=== PATIENT | male | born 1950 | race Two or more races ===

== ENCOUNTER 2016-12-04 18:31 | Emergency (ER) | payer OTHER ==
[~2016-12-04] VITALS: Ht 172.7 cm; Wt 66.2 kg
[~2016-12-04 18:31] MED LIST: ASCO500T3 PO; CA C1TAB28 PO; FERR-26 PO; HYDR-2762 PO; LISI-373 PO; RANI150T6 PO; TAMS0.4C97 PO; VITA1TAB49 PO
--- NOTE | 2016-12-04 20:43 | PHYS DOC ---
Past Medical History Past Medical History: High Cholesterol, Hip Dislocation, Unknown Past Surgical History: Cholecystectomy, Hip Replacement Alcohol Use: Heavy Additional Information: DRINKS DAILY 3 TO 4 BEERS Drug Use: None Adult General Chief Complaint Chief Complaint: HIP PAIN HPI HPI Patient is a 66 year old male who presents with mild right hip pain and concern for hip dislocation. He was getting in his car and then fell due to feeling his hip pop out of socket. He states he has a right hip replacement and this has happened multiple times in the past. He notes mild local pain that is achy and constant. Pain is worse with range of motion of the leg. He denies numbness, tingling, weakness, back pain, other injury. States if we do his hip reduction, he will want to go home. Review of Systems Review of Systems Constitutional: Denies fever or chills [] Eyes: Denies change in visual acuity, redness, or eye pain [] HENT: Denies nasal congestion or sore throat [] Respiratory: Denies cough or shortness of breath [] Cardiovascular: No additional information not addressed in HPI [] GI: Denies abdominal pain, nausea, vomiting, bloody stools or diarrhea [] : Denies dysuria or hematuria [] Musculoskeletal: Denies back pain [] Integument: Denies rash or skin lesions [] Neurologic: Denies headache, focal weakness or sensory changes [] Endocrine: Denies polyuria or polydipsia [] Current Medications Current Medications Current Medications Medications (Trade) Dose Ordered Sig/Claudia Start Time Stop Time Status Last Admin Dose Admin Propofol (Diprivan) 120 mg 1X ONCE 12/04/16 21:15 12/04/16 21:16 DC 12/04/16 23:12 120 MG Allergies Allergies Allergies Coded Allergies Type Severity Reaction Last Updated Verified No Known Drug Allergies 06/21/14 No Physical Exam Physical Exam Constitutional: Well developed, well nourished, no acute distress, non-toxic appearance. [] HENT: Normocephalic, atraumatic, bilateral external ears normal, oropharynx moist, nose normal. [] Eyes: PERRLA, EOMI. [] Neck: Normal range of motion, supple. [] Cardiovascular:Heart rate regular rhythm [] Lungs & Thorax: Bilateral breath sounds clear to auscultation [] Abdomen: Bowel sounds normal, soft, no tenderness. [] Skin: Warm, dry, no erythema, no rash. [] Back: No tenderness, no CVA tenderness. [] Extremities: RLE with no discoloration but has internal rotation and shortening of leg; ROM limited at hip due to pain, knee full rom, ankle df/pf, toes df/pf; SILT mendoza/sa/sp/dp/tib distributions; faint dp pulses equal bilaterally Neurologic: Alert and oriented X 3, normal motor function, normal sensory function, no focal deficits noted. [] Psychologic: Affect normal, judgement normal, mood normal. [] Current Patient Data Vital Signs Vital Signs Date Time Temp Pulse Resp B/P Pulse Ox O2 Delivery O2 Flow Rate FiO2 12/05/16 01:40 80 17 138/63 96 Room Air 12/04/16 18:47 97.7 97.7 Lab Values Laboratory Tests Test 12/05/16 01:00 White Blood Count 5.2x10^3/uL (4.0-11.0) Red Blood Count 3.91x10^6/uL (4.30-5.70) L Hemoglobin 13.3g/dL (13.0-17.5) Hematocrit 38.9% (39.0-53.0) L Mean Corpuscular Volume 100fL (79-100) Mean Corpuscular Hemoglobin 34pg (25-35) Mean Corpuscular Hemoglobin Concent 34g/dL (31-37) Red Cell Distribution Width 13.9% (11.5-14.5) Platelet Count 211x10^3/uL (140-400) Neutrophils (%) (Auto) 80% (31-73) H Lymphocytes (%) (Auto) 11% (24-48) L Monocytes (%) (Auto) 8% (0-9) Eosinophils (%) (Auto) 1% (0-3) Basophils (%) (Auto) 1% (0-3) Neutrophils # (Auto) 4.1x10^3uL (1.8-7.7) Lymphocytes # (Auto) 0.6x10^3/uL (1.0-4.8) L Monocytes # (Auto) 0.4x10^3/uL (0.0-1.1) Eosinophils # (Auto) 0.0x10^3/uL (0.0-0.7) Basophils # (Auto) 0.0x10^3/uL (0.0-0.2) Sodium Level 129mmol/L (136-145) L Potassium Level 3.7mmol/L (3.5-5.1) Chloride Level 93mmol/L (98-107) L Carbon Dioxide Level 24mmol/L (21-32) Anion Gap 12 (6-14) Blood Urea Nitrogen 6mg/dL (8-26) L Creatinine 0.6mg/dL (0.7-1.3) L Estimated GFR (Cockcroft-Gault) 134.0 Glucose Level 108mg/dL (70-99) H Calcium Level 8.3mg/dL (8.5-10.1) L Laboratory Tests 12/05/16 01:00 Laboratory Tests 12/05/16 01:00 Radiology/Procedures Radiology/Procedures X-ray right hip and pelvis as interpreted by me showing prosthetic hip dislocation with no apparent fracture or hardware failure X-ray right hip as interpreted by me showing appropriate reduction with no apparent fracture Course & Med Decision Making Course & Med Decision Making Pertinent Labs and Imaging studies reviewed. (See chart for details) His right hip dislocation was reduced after sedation with propofol. He tolerated this well without complications. Repeat exam notes intact internal and external rotation, flexion and extension of the hip. He is ambulatory with a steady gait independently. He would like to go home and follow-up with his orthopedist. Return precautions given. He understands and agrees with plan. Dragon Disclaimer Dragon Disclaimer This electronic medical record was generated, in whole or in part, using a voice recognition dictation system. Joint Reduction Procedure Joint Indication: Joint dislocation Consent: Consent was obtained. Procedure: The pre-reduction exam showed distal perfusion and neurologic function to be normal.. The patient was placed in the appropriate position. Anesthesia/pain control was propofol IV 1.5mg/kg. Reduction of the right hip was performed by "Captain De La Garza" technique. Post reduction films were obtained and revealed satisfactory reduction. A post-reduction exam revealed distal perfusion and neurologic function to be normal. The patient tolerated the procedure well. Complications: none. Procedural Sedation Proc Sed Indication: closed reduction of right hip dislocation Consent: I have discussed with the patient and/or the patient entry level account representative the indication, alternatives, and the possible risks and /or complications of the planned procedure and the anesthesia methods. The patient and/or patient entry level account representative appear to understand and agree to proceed. Pre-Sedation Documentation and Exam: A&Ox4, RRR, CTAB, otherwise as above Airway Assessment: normal. Prior History of Anesthesia Complications: none. ASA Classification: 2 Sedation/ Anesthesia Plan: propofol IV Medications Used: see nursing notes. Monitoring and Safety: The patient was placed on a playground monitor and vital signs, pulse oximetry and level of consciousness were continuously evaluated throughout the procedure. The patient was closely monitored until recovery from the medications was complete and the patient had returned to baseline status. Respiratory therapy was on standby at all times during the procedure. (The following sections must be completed) Post-Sedation Vital Signs: HR 80, BP 138/63, RR 17, POx 96 Post-Sedation Exam: A&Ox4, RRR, CTAB, ambulatory with a steady gait, sensation intact to light touch, full ROM to RLE, equal DP pulses Complications: none. Departure Departure Impression: Primary Impression: Hip dislocation, right Disposition: 01 HOME, SELF-CARE Condition: STABLE Referrals: SEVERIANO DE LA ROSA MD (PCP) Patient Instructions: Closed Reduction for Artificial Hip Dislocation, Care After Additional Instructions: Take Tylenol or ibuprofen as needed for pain. Follow-up with your primary care doctor and orthopedic surgeon. Return for any concerns. Problem Qualifiers Primary Impression: Hip dislocation, right Encounter type: initial encounter Qualified Code: S73.004A - Unspecified dislocation of right hip, initial encounter Cathleen SAN MD Dec 04, 2016 20:42
[2016-12-04] MEDS ORDERED: PROPOFOL 10 MG/ML (50ML) VIAL. IV ONE (21:15)
[2016-12-05 01:19] LABS: BASO % 1 % (0-3); EOS % 1 % (0-3); HEMATOCRIT 38.9 % (39.0-53.0); HEMOGLOBIN 13.3 g/dL (13.0-17.5); LYMPH # 0.6 x10^3/uL (1.0-4.8); LYMPH % 11 % (24-48); MEAN CORPUSCULAR HEMOGLOBIN 34 pg (25-35); MEAN CORPUSCULAR HGB CONC 34 g/dL (31-37); MEAN CORPUSCULAR VOLUME 100 fL (79-100); MONO % 8 % (0-9); NEUT % 80 % (31-73); PLATELET COUNT 211 x10^3/uL (140-400); RED BLOOD COUNT 3.91 x10^6/uL (4.30-5.70); RED CELL DISTRIBUTION WIDTH 13.9 % (11.5-14.5); WHITE BLOOD COUNT 5.2 x10^3/uL (4.0-11.0)
[2016-12-05 01:33] LABS: CALCIUM 8.3 mg/dL (8.5-10.1); CREATININE 0.6 mg/dL (0.7-1.3); POTASSIUM 3.7 mmol/L (3.5-5.1)
[2016-12-05 01:40] VITALS: BP 138/63
--- NOTE | 2016-12-05 08:14 | RAD ---
AP and lateral radiographs of the right hip 12/05/2016 Clinical history: Post reduction of a hip dislocation. AP and lateral digital radiographs of the right hip were obtained. The patient is status post right KELSEY. The prosthetic femoral head articulates normally with the acetabulum. No fracture is seen. Impression: Postreduction radiographs of the right hip.
--- NOTE | 2016-12-05 10:32 | RAD ---
AP and lateral right hip radiographs to include an AP radiograph of the pelvis 12/04/2016 Clinical history: Right hip pain. An AP digital radiograph of the pelvis was obtained. AP and lateral digital radiographs of the right hip were obtained. The lateral radiograph is suboptimally positioned. The patient is status post right KELSEY. The femoral head is dislocated superiorly on the AP radiographs. No fracture is seen. Moderate degenerative changes are seen involving the left hip. Impression: Post dislocation of the right KELSEY. No fracture is seen.
== END 2016-12-05 01:40 | disposition home or self-care (01) ==
LOC: ER 18:31
DX: S73.004A Unspecified dislocation of right hip, initial encounter (principal); E78.00 Pure hypercholesterolemia, unspecified; Z96.641 Presence of right artificial hip joint; W19.XXXA Unspecified fall, initial encounter; Y93.89 Activity, other specified; Y92.89 Other specified places as the place of occurrence of the external cause; Y99.8 Other external cause status
CPT/HCPCS: 27250; 36415; 73502; 80048; 85027; 99285; J2704

== ENCOUNTER 2016-12-18 19:48 | Emergency (ER) | payer OTHER ==
[2016-12-18] MEDS ORDERED: PROPOFOL 10 MG/ML (50ML) VIAL. IV ONE (20:00)
[2016-12-18] MEDS ORDERED: ONDANSETRON PF 4 MG/2 ML VIAL. IV ONE (20:15)
[2016-12-18] MEDS ORDERED: HYDROMORPHONE 2 MG/ML VIAL. IV ONE (20:15)
[2016-12-18 22:15] VITALS: BP 114/56
[2016-12-18] MEDS ORDERED: HYDR-2678 PO (22:34)
--- NOTE | 2016-12-18 22:34 | PHYS DOC ---
Past Medical History Past Medical History: High Cholesterol, Hip Dislocation, Unknown, Other Additional Past Medical Histor: MULTIPLE R HIP DISLOCATIONS,ETOH Past Surgical History: Cholecystectomy, Hip Replacement, Other Additional Past Surgical Histo: SEDATION FOR HIP DISLOCATION Alcohol Use: Heavy Additional Information: DRINKS 6 PACK A DAY @ LEAST Drug Use: None Adult General Chief Complaint Chief Complaint: HIP PAIN HPI HPI Patient is a 66 year old male with history significant for a right hip replacement presents to the ER today secondary to a dislocation to his right hip. Patient reports he was getting out of his car when he felt a pop and had severe pain to his right hip. Patient reports this is identical to what happened to him before. Patient reports that his hip was replaced approximately 10 years ago and he has had a couple dislocations since. Patient's orthopedic surgeon is Dr. Whitley who no longer practices here in [place]. Patient reports she does not have a orthopedic surgeon currently. He reports that he has not seen Dr. Krishnamurthy in the past. She was recently here in the hospital approximately 3 months ago with identical presentation was reduced and was discharged home to follow-up with Dr. De La Rosa. Patient denies any other symptomatology at this time. He denies any recent fevers cough cold vomiting or diarrhea. Patient denies any head trauma or any other injury after the dislocation. Patient's physical exam is significant for right hip tenderness. Patient's hip is flexed and internally rotated. Patient is neurovascularly intact. Patient has good pulses distally. Patient has good capillary refill. Patient has sensation and motor to his ankle and foot without any difficulty. Patient is alert awake oriented 3. Patient's x-ray revealed an anterior dislocation of his right hip. There is no acute fracture. After discussing with patient we have planned to do conscious sedation and reduce his right hip in the ED. Patient's right hip was reduced and was placed in a abductor pillow between his legs. Patient tolerated the procedure well. I discussed the case with Dr. Krishnamurthy who agrees with the plan to discharge the patient home and have him follow-up with him in the office next week. This plan was discussed with the patient is in complete agreement with the plan to be discharged home. Patient feels comfortable with going home and taking care of himself at this time. Joint Reduction Procedure Joint Indication: Joint dislocation Consent: Consent was obtained. Procedure: The pre-reduction exam showed distal perfusion and neurologic function to be normal.. The patient was placed in the appropriate position. Anesthesia/pain control was propofol IV 1.5mg/kg. Reduction of the right hip was performed by hip [id number] and traction technique. Post reduction films were obtained and revealed satisfactory reduction. A post-reduction exam revealed distal perfusion and neurologic function to be normal. The patient tolerated the procedure well. Complications: none. Procedural Sedation Proc Sed Indication: closed reduction of right hip dislocation Consent: I have discussed with the patient and/or the patient banking representative the indication, alternatives, and the possible risks and /or complications of the planned procedure and the anesthesia methods. The patient and/or patient banking representative appear to understand and agree to proceed. Pre-Sedation Documentation and Exam: A&Ox4, Airway Assessment: normal. Prior History of Anesthesia Complications: none. ASA Classification: 2 Sedation/ Anesthesia Plan: propofol IV 1mg/kg Medications Used: see nursing notes. Monitoring and Safety: The patient was placed on a campus monitor and vital signs, pulse oximetry and level of consciousness were continuously evaluated throughout the procedure. The patient was closely monitored until recovery from the medications was complete and the patient had returned to baseline status. Respiratory therapy was on standby at all times during the procedure. Review of Systems Review of Systems Constitutional: Denies fever or chills [] Eyes: Denies change in visual acuity, redness, or eye pain [] All other review systems are negative except as documented in the history of present illness portion Current Medications Current Medications Current Medications Medications (Trade) Dose Ordered Sig/Claudia Start Time Stop Time Status Last Admin Dose Admin Hydromorphone HCl (Dilaudid) 1 mg 1X ONCE 12/18/16 20:15 12/18/16 20:16 DC 12/18/16 20:11 1 MG Ondansetron HCl (Zofran) 4 mg 1X ONCE 12/18/16 20:15 12/18/16 20:16 DC 12/18/16 20:11 4 MG Propofol (Diprivan) 500 mg 1X ONCE 12/18/16 20:00 12/18/16 20:04 DC 12/18/16 20:58 500 MG Allergies Allergies Allergies Coded Allergies Type Severity Reaction Last Updated Verified No Known Drug Allergies 06/21/14 No Physical Exam Physical Exam Constitutional: Well developed, well nourished, no acute distress, non-toxic appearance. [] HENT: Normocephalic, atraumatic, bilateral external ears normal, oropharynx moist, no oral exudates, nose normal. [] Eyes: PERRLA, EOMI, conjunctiva normal, no discharge. [] Neck: Normal range of motion, no tenderness, supple, no stridor. [] Cardiovascular:Heart rate regular rhythm, Lungs & Thorax: Bilateral breath sounds clear to auscultation [] Abdomen: Bowel sounds normal, soft, no tenderness, no masses, no pulsatile masses. [] Skin: Warm, dry, no erythema, no rash. [] Back: No tenderness, no CVA tenderness. [] Extremities: See above. Neurologic: Alert and oriented X 3, normal motor function, normal sensory function, no focal deficits noted. [] Psychologic: Affect normal, judgement normal, mood normal. [] Current Patient Data Vital Signs Vital Signs Date Time Temp Pulse Resp B/P Pulse Ox O2 Delivery O2 Flow Rate FiO2 12/18/16 21:15 82 16 113/55 97 Room Air 12/18/16 19:48 96.9 96.9 EKG EKG [] Interpretation Time: Post reduction hip of the right hip reveals adequate reduction of fracture. Radiology/Procedures Radiology/Procedures [] Course & Med Decision Making Course & Med Decision Making Pertinent Labs and Imaging studies reviewed. (See chart for details) [] Dragon Disclaimer Dragon Disclaimer This electronic medical record was generated, in whole or in part, using a voice recognition dictation system. Departure Departure Impression: Primary Impression: Hip dislocation, right Disposition: 01 HOME, SELF-CARE Condition: IMPROVED Referrals: SEVERIANO DE LA ROSA MD (PCP) VIRGINIA MOTT MD Patient Instructions: Closed Reduction for Artificial Hip Dislocation, Care After Scripts Hydrocodone/Acetaminophen (Lortab 5-325 mg Tablet)1 Each Tablet1 Tab PO PRN Q6HRS PRN PAIN #15 TAB Prov:PASCUAL NIEVES MD 12/18/16 PASCUAL NIEVES MD Dec 18, 2016 22:34
--- NOTE | 2016-12-19 08:23 | RAD ---
Indication post reduction. AP and lateral views of the right hip were obtained at 2113 and are compared to an examination approximately 45 minutes earlier. There is been interval reduction of previously identified total hip dislocation. IMPRESSION: Interval reduction
--- NOTE | 2016-12-19 08:24 | RAD ---
Indication deformity right hip. AP and lateral views of the right hip were obtained as well as an AP view of the pelvis. There is a dislocated total right hip prosthesis. The femoral head component is displaced superiorly and posteriorly out of the acetabular component. No fracture is seen. IMPRESSION: Dislocated total right hip prosthesis
== END 2016-12-18 23:45 | disposition home or self-care (01) ==
LOC: ER 19:48
DX: S73.014A Posterior dislocation of right hip, initial encounter (principal); E78.00 Pure hypercholesterolemia, unspecified; F10.10 Alcohol abuse, uncomplicated; Z96.641 Presence of right artificial hip joint; X58.XXXA Exposure to other specified factors, initial encounter; Y93.89 Activity, other specified; Y92.89 Other specified places as the place of occurrence of the external cause; Y99.8 Other external cause status
CPT/HCPCS: 27250; 73502; 96374; 96375; 99285; J1170; J2405; J2704

== ENCOUNTER 2017-05-09 16:21 | Emergency (ER) | payer OTHER ==
[~2017-05-09] VITALS: Ht 170.2 cm; Wt 69.9 kg
[~2017-05-09 16:21] MED LIST changes: +HYDR-2678 PO
--- NOTE | 2017-05-09 16:39 | PHYS DOC ---
Past Medical History Past Medical History: High Cholesterol, Hip Dislocation, Unknown, Other Additional Past Medical Histor: MULTIPLE R HIP DISLOCATIONS,ETOH Past Surgical History: Cholecystectomy, Hip Replacement, Other Additional Past Surgical Histo: SEDATION FOR HIP DISLOCATION Alcohol Use: Heavy Drug Use: None Adult General Chief Complaint Chief Complaint: HIP PAIN HPI HPI Patient is a 66 year old male who presents with one hour history of right hip pain after stepping up into a truck in a parking lot; he felt this prosthetic hip dislocate. This is happened before. Pain is mild to moderate. No other injury or complaints. No chest pain or shortness of breath or abdominal pain. Review of Systems Review of Systems Constitutional: Denies fever or chills [] Eyes: Denies change in visual acuity, redness, or eye pain [] HENT: Denies nasal congestion or sore throat [] Respiratory: Denies cough or shortness of breath [] Cardiovascular: No additional information not addressed in HPI [] GI: Denies abdominal pain, nausea, vomiting, bloody stools or diarrhea [] : Denies dysuria or hematuria [] Musculoskeletal: Denies back pain or joint pain [] Integument: Denies rash or skin lesions [] Neurologic: Denies headache, focal weakness or sensory changes [] Endocrine: Denies polyuria or polydipsia [ All systems negative except as mentioned in the history of present illness] Current Medications Current Medications Current Medications Medications (Trade) Dose Ordered Sig/Claudia Start Time Stop Time Status Last Admin Dose Admin Hydromorphone HCl (Dilaudid) 0.5 mg 1X ONCE 05/09/17 17:45 05/09/17 17:46 DC 05/09/17 18:30 0.5 MG Propofol 20 ml @ 5 mls/min 1X ONCE 05/09/17 18:15 05/09/17 18:18 DC Allergies Allergies Allergies Coded Allergies Type Severity Reaction Last Updated Verified No Known Drug Allergies 06/21/14 No Physical Exam Physical Exam Constitutional: Well developed, well nourished, no acute distress, non-toxic appearance. [] HENT: Normocephalic, atraumatic, bilateral external ears normal, oropharynx moist, no oral exudates, nose normal. [] Eyes: PERRLA, EOMI, conjunctiva normal, no discharge. [] Neck: Normal range of motion, no tenderness, supple, no stridor. [] Cardiovascular:Heart rate regular rhythm, no murmur [] Lungs & Thorax: Bilateral breath sounds clear to auscultation [] Abdomen: Bowel sounds normal, soft, no tenderness, no masses, no pulsatile masses. [] Skin: Warm, dry, no erythema, no rash. [] Back: No tenderness, no CVA tenderness. [] Extremities: No tenderness, no cyanosis, no clubbing, ROM intact, no edema. Except for right hip leg is slightly foreshortened, 2+ pulses in the foot and ankle, pain to palpation lateral right hip. [] Neurologic: Alert and oriented X 3, normal motor function, normal sensory function, no focal deficits noted. [] Psychologic: Affect normal, judgement normal, mood normal. [] Current Patient Data Vital Signs Vital Signs Date Time Temp Pulse Resp B/P (MAP) Pulse Ox O2 Delivery O2 Flow Rate FiO2 05/09/17 18:45 78 18 149/53 (85) 100 Nasal Cannula 2.0 05/09/17 16:33 98.4 98.4 EKG EKG [] Radiology/Procedures Radiology/Procedures X-ray right hip pelvis [no fracture; positive for posterior dislocation seen interpreted by me] Course & Med Decision Making Course & Med Decision Making Pertinent Labs and Imaging studies reviewed. (See chart for details) [] Plan will be to obtain x-rays and reduce right hip dislocation if indicated. Procedure sedation: 15 minutes total duration; consent was obtained preanesthesia evaluation showed normal airway no significant systemic disease; patient was preoxygenated given a total of 140 mg of propofol with good sedation ; no complications no desaturations, no apnea; tolerated well. Second physician was present in the room Dr. Bustamante. Procedure: Right hip dislocation reduction: Hip was flexed to 90 with internal/ external rotation and axial traction the hip easily was reduced with adequate left leg lengthening. Neurovascular intact post procedure. This case with Dr. Moran orthopedic surgery recommends that the patient sleep with a pillow between his legs and avoid hip flexion. He'll follow-up in the office in the next 1-2 weeks. Dragon Disclaimer Dragon Disclaimer This electronic medical record was generated, in whole or in part, using a voice recognition dictation system. Departure Departure Impression: Primary Impression: Dislocation of internal right hip prosthesis Disposition: 01 HOME, SELF-CARE Referrals: SEVERIANO DE LA ROSA MD (PCP) DARCY MORAN MD Please see Dr. Moran in the office in the next 1-2 weeks Patient Instructions: Prosthetic Hip Dislocation Additional Instructions: Weight-bear and walk as tolerated. Avoid hip flexion. May sleep with a pillow between the legs. WALI TORRES MD May 09, 2017 16:39
[2017-05-09] MEDS ORDERED: HYDROmorphone 2 MG/ML VIAL IV ONE (17:45)
[2017-05-09] MEDS ORDERED: PROPOFOL 20 ML IV ONE (18:15)
[2017-05-09 19:47] VITALS: BP 157/69
--- NOTE | 2017-05-10 07:26 | RAD ---
Pelvis with right hip, 3 views, 05/09/2017, 4:59 PM: History: Right hip dislocation, pain Comparison is made to a study from 12/18/2016. The right hip prosthesis is now dislocated. The femoral head component is displaced proximally, laterally and posteriorly relative to the acetabular component. No acute fracture is evident. There are mild degenerative changes at the left hip joint. Moderate arterial calcifications are present. IMPRESSION: Dislocated right hip prosthesis.
--- NOTE | 2017-05-10 07:27 | RAD ---
Portable pelvis with right hip, 3 views, 05/09/2017, 7:13 PM: History: Postreduction evaluation Comparison is made to study of earlier the same day. The right hip prosthesis dislocation has been reduced. The femoral head component now articulates normally with the acetabular component. No acute fracture is identified. IMPRESSION: Satisfactory reduction of the right hip prosthesis dislocation.
== END 2017-05-09 19:56 | disposition home or self-care (01) ==
LOC: ER 16:21
DX: T84.020A Dislocation of internal right hip prosthesis, initial encounter (principal); E78.00 Pure hypercholesterolemia, unspecified; Z96.649 Presence of unspecified artificial hip joint; Z90.49 Acquired absence of other specified parts of digestive tract; F10.10 Alcohol abuse, uncomplicated; W22.8XXA Striking against or struck by other objects, initial encounter; Y93.89 Activity, other specified; Y99.8 Other external cause status; Y92.481 Parking lot as the place of occurrence of the external cause
CPT/HCPCS: 27265; 73502; 96374; 99285; J1170; J2704; 99152